=== PATIENT | male | born 1985 | race African-American/Black ===

== ENCOUNTER 2019-11-10 11:31 | Emergency (ER) | payer MEDICAID ==
[~2019-11-10] VITALS: Ht 182.9 cm; Wt 136.0 kg
[2019-11-10 11:37] VITALS: BP 150/100
[2019-11-10] MEDS ORDERED: CETI10TA74 PO (11:42)
[2019-11-10] MEDS ORDERED: FLUT9.9S NS (11:42)
--- NOTE | 2019-11-10 11:42 | PHYS DOC ---
Past History Past Medical History: No Pertinent History Adult General Chief Complaint Chief Complaint: CONGESTION HPI HPI Patient is a 33-year-old male who presents for congestion x2 days. Denies any known inciting event or trauma. Denies any provoking factors, admits taking hot he Toddy yesterday evening which helped his symptoms. Patient admits to generalized upper respiratory-like symptoms such as clear rhinorrhea, nasal congestion, and postnasal drip. Denies fever, known COVID-19 contact, headache, chest pain, shortness of breath, abdominal pain, urinary symptoms, syncope. He is not immunocompromised. He admits to smoking cigarettes and THC daily. Review of Systems Review of Systems Fourteen body systems of review of systems have been reviewed. See HPI for pertinent positives and negative responses, other fernandez all other systems are negative, non-pertinent or non-contributory Physical Exam Physical Exam Constitutional: Well developed, well nourished, no acute distress, non-toxic appearance. Ambulatory. Smells like marijuana HENT: Normocephalic, atraumatic, bilateral external ears normal, mild middle ear fluid of left ear, no abnormalities of bilateral tympanic membranes, mild postnasal drip present, oropharynx moist, no oral exudates, external nose normal, mildly engorged turbinates bilaterally with rhinorrhea present Eyes: PERRLA, EOMI, conjunctiva normal, no discharge. Neck: Normal range of motion, no tenderness, supple, no stridor. Cardiovascular: Heart rate regular, sinus rhythm, no murmurs rubs or gallops Lungs & Thorax: Bilateral breath sounds clear to auscultation Abdomen: Bowel sounds normal, soft, no tenderness, no masses, no pulsatile masses. Nonsurgical abdomen, no peritoneal signs Skin: Warm, dry, no erythema, no rash. Back: No tenderness, no CVA tenderness. Extremities: No tenderness, no cyanosis, no clubbing, ROM intact, no edema. Neurologic: Alert and oriented X 3, grossly normal motor & sensory function, no focal deficits noted. Psychologic: Affect normal, judgement normal, mood normal. EKG EKG [] Radiology/Procedures Radiology/Procedures [] Course & Med Decision Making Course & Med Decision Making Ambulatory patient seen on immediate ER arrival ABCs non-concerning Comprehensive history and physical exam obtained I discussed findings with patient, most likely viral syndrome. I encouraged continued supportive care for which patient was agreeable. I also offered patient COVID-19 screen; however, he declined as he did not want nasal swab performed I discussed this may be an acute presentation of more concerning pathology and he understood this well Strict return precautions were discussed with good understanding by patient, all questions and concerns addressed prior to ER departure in stable condition for continued supportive care with new prescriptions for Flonase and Zyrtec Dragon Disclaimer Dragon Disclaimer This electronic medical record was generated, in whole or in part, using a voice recognition dictation system. Departure Departure: Impression: Primary Impression: Viral syndrome Disposition: HOME/RESIDENCE PRIOR TO ADM Condition: STABLE Scripts Fluticasone Propionate (Flonase Allergy Relief) 9.9 Ml [place].susp 2 SPRAYS NS DAILY for Allergies, #1 BOTTLE Prov: AZUL COTE DO 11/10/19 Cetirizine Hcl (ZYRTEC) 10 Mg Tablet 1 TAB PO DAILY for Allergies, #30 TAB 2 Refills Prov: AZUL COTE DO 11/10/19 Justification of Admission: Justification of Admission: Justification of Admission Dx: N/A AZUL COTE DO Nov 10, 2019 11:42
== END 2019-11-10 11:48 | disposition home or self-care (01) ==
LOC: ER 11:31
DX: B34.9 Viral infection, unspecified (principal)
CPT/HCPCS: 99283

== ENCOUNTER 2019-11-17 22:34 | Emergency (ER) | payer MEDICAID ==
[~2019-11-17] VITALS: Ht 185.4 cm; Wt 147.6 kg
[~2019-11-17 22:34] MED LIST: CETI10TA74 PO; FLUT9.9S NS
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
[2019-11-17] MEDS ORDERED: IV RINGERS SOLUTION,LACTATED 1,000 ML IV SCH (23:00)
--- NOTE | 2019-11-17 23:11 | EKG ---
[address] [address] Test Date: 2019-11-17 Test Time: 22:56:32 Pat Name: ALETHEA CARL Department: Room: Gender: M Director Zone: : 1985 Requested By: LANA SHAIKH Order Number: [id number] Reading MD: Measurements Intervals [place] Rate: 83 P: 56 [place]: 150 QRS: 57 QRSD: 86 T: 16 QT: 360 QTc: 424 Interpretive Statements SINUS RHYTHM NORMAL ECG RI6.02 No previous ECG available for comparison
[2019-11-17 23:20] LABS: BASO # 0.1 x10^3/uL (0.0-0.2); BASO % 1 % (0-3); EOS # 0.3 x10^3/uL (0.0-0.7); EOS % 3 % (0-3); HEMATOCRIT 46.3 % (39.0-53.0); LYMPH # 2.9 x10^3/uL (1.0-4.8); LYMPH % 31 % (24-48); MEAN CORPUSCULAR HEMOGLOBIN 26 pg (25-35); MEAN CORPUSCULAR HGB CONC 32 g/dL (31-37); MEAN CORPUSCULAR VOLUME 81 fL (79-100); MONO # 0.8 x10^3/uL (0.0-1.1); MONO % 9 % (0-9); NEUT # 5.1 x10^3uL (1.8-7.7); NEUT % 56 % (31-73); PLATELET COUNT 274 x10^3/uL (140-400); RED BLOOD COUNT 5.71 x10^6/uL (4.30-5.70); RED CELL DISTRIBUTION WIDTH 14.5 % (11.5-14.5); WHITE BLOOD COUNT 9.1 x10^3/uL (4.0-11.0)
[2019-11-17 23:27] LABS: CALCIUM 9.4 mg/dL (8.5-10.1); CREATININE 1.3 mg/dL (0.7-1.3); GFR 76.5; POTASSIUM 4.5 mmol/L (3.5-5.1)
[2019-11-17 23:30] VITALS: BP 133/77
[2019-11-17 23:39] LABS: ALBUMIN 3.6 g/dL (3.4-5.0); DIRECT BILIRUBIN 0.1 mg/dL (0.0-0.2); MAGNESIUM 1.9 mg/dL (1.8-2.4); TOTAL BILIRUBIN 0.2 mg/dL (0.2-1.0)
[2019-11-18] MEDS ORDERED: ALBU2.5V8 IH (00:34)
[2019-11-18 00:35] LABS: BARBITURATES NEG (NEG); BENZODIAZEPINES NEG (NEG); CANNABINOIDS POS (NEG); COCAINE NEG (NEG); METHADONE NEG (NEG); OPIATES NEG (NEG); PHENCYCLIDINE NEG (NEG)
[2019-11-18 00:36] LABS: BACTERIA,URINE 0 /HPF (0-FEW); BILIRUBIN,URINE NEG (NEG); CLARITY,URINE CLEAR; COLOR,URINE YELLOW; GLUCOSE,URINE NEG (NEG); NITRITE,URINE NEG (NEG); RBC,URINE OCC /HPF (0-2); SQUAMOUS EPITHELIAL CELL,UR FEW /LPF; UROBILINOGEN,URINE 0.2 mg/dL (0.2 mg/dL)
[2019-11-18 00:38] LABS: AMPHETAMINE/METHAMPHETAMINE NEG (NEG)
--- NOTE | 2019-11-18 00:40 | RAD ---
CHEST PA LATERAL History: Reason: dyspnea / Spl. Instructions: / History: Comparison: None. Findings: The cardiomediastinal silhouette is normal. Pulmonary vasculature is normal. The lungs are clear. No pleural effusion or pneumothorax is seen. There is no acute bone abnormality. IMPRESSION: No acute cardiopulmonary process. Electronically signed by: Chapo Augustin MD (11/18/2019 12:37 AM) [facility]
== END 2019-11-18 01:07 | disposition home or self-care (01) ==
LOC: ER 22:34
DX: B34.9 Viral infection, unspecified (principal); J40 Bronchitis, not specified as acute or chronic; G47.30 Sleep apnea, unspecified; I10 Essential (primary) hypertension; R79.89 Other specified abnormal findings of blood chemistry; F17.210 Nicotine dependence, cigarettes, uncomplicated; F12.10 Cannabis abuse, uncomplicated; Z91.14 Patient's other noncompliance with medication regimen
CPT/HCPCS: 36415; 71046; 80048; 80076; 80307; 81001; 82550; 83690; 83735; 83880; 84443; 84484; 85025; 85379; 85610; 85730; 87070; 87880; 93005; 96360; 96361; 99285; G0480; J7120

== ENCOUNTER 2019-11-29 01:51 | Emergency (ER) | payer MEDICAID ==
[~2019-11-29] VITALS: Ht 185.4 cm; Wt 142.6 kg
[2019-11-29 01:51] VITALS: BP 163/105
[~2019-11-29 01:51] MED LIST changes: +ALBU2.5V8 IH
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
[2019-11-29] MEDS ORDERED: ASPIRIN CHEWABLE 81 MG TABLET. PO ONE (02:15)
[2019-11-29] MEDS ORDERED: IV RINGERS SOLUTION,LACTATED 1,000 ML IV SCH (02:15)
[2019-11-29] MEDS ORDERED: cloNIDine TTS-2 1 PATCH PATCH TD ONE ×2 (02:26→02:30)
[2019-11-29] MEDS ORDERED: cloNIDine HCL 0.1 MG TABLET ONE (02:26)
[2019-11-29] MEDS ORDERED: cloNIDine HCL 0.1 MG TABLET PO ONE (02:30)
[2019-11-29 03:23] LABS: AMPHETAMINE/METHAMPHETAMINE NEG (NEG); BARBITURATES NEG (NEG); BENZODIAZEPINES NEG (NEG); CANNABINOIDS POS (NEG); COCAINE POS (NEG); METHADONE NEG (NEG); OPIATES NEG (NEG); PHENCYCLIDINE NEG (NEG)
[2019-11-29 03:25] LABS: BACTERIA,URINE 0 /HPF (0-FEW); BILIRUBIN,URINE NEG (NEG); CLARITY,URINE CLEAR; COLOR,URINE YELLOW; GLUCOSE,URINE NEG (NEG); NITRITE,URINE NEG (NEG); SQUAMOUS EPITHELIAL CELL,UR FEW /LPF; UROBILINOGEN,URINE 0.2 mg/dL (0.2 mg/dL)
== END 2019-11-29 02:36 | disposition home or self-care (01) ==
LOC: ER 01:51
DX: R12 Heartburn (principal); K21.9 Gastro-esophageal reflux disease without esophagitis; I10 Essential (primary) hypertension; F41.9 Anxiety disorder, unspecified; F12.10 Cannabis abuse, uncomplicated; E78.00 Pure hypercholesterolemia, unspecified; G47.30 Sleep apnea, unspecified; F17.210 Nicotine dependence, cigarettes, uncomplicated; Z91.14 Patient's other noncompliance with medication regimen
CPT/HCPCS: 36415; 80307; 81001; 87086; 99283

== ENCOUNTER 2019-12-12 06:04 | Emergency (ER) | payer MEDICAID ==
[~2019-12-12] VITALS: Ht 185.4 cm; Wt 146.0 kg
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
[2019-12-12] MEDS ORDERED: METOCLOPRAMIDE 10 MG TABLET PO ONE (06:45)
[2019-12-12] MEDS ORDERED: diphenhydrAMINE HCL 25 MG CAPSULE PO ONE (06:45)
[2019-12-12] MEDS ORDERED: DEXAMETHASONE SOD PHOS 10 MG/ML VIAL. PO ONE (06:45)
[2019-12-12] MEDS ORDERED: IBUPROFEN 600 MG TABLET. PO ONE (06:45)
[2019-12-12] MEDS ORDERED: BENZ100C PO (06:48)
[2019-12-12 06:58] LABS: BARBITURATES NEG (NEG); BENZODIAZEPINES NEG (NEG); CANNABINOIDS POS (NEG); COCAINE NEG (NEG); METHADONE NEG (NEG); OPIATES NEG (NEG); PHENCYCLIDINE NEG (NEG)
[2019-12-12 07:00] LABS: AMPHETAMINE/METHAMPHETAMINE NEG (NEG)
[2019-12-12 07:05] VITALS: BP 142/99
== END 2019-12-12 07:05 | disposition home or self-care (01) ==
LOC: ER 06:04
DX: R51.9 Headache, unspecified (principal); R05 Cough; R11.0 Nausea; E78.00 Pure hypercholesterolemia, unspecified; I10 Essential (primary) hypertension; F41.9 Anxiety disorder, unspecified; F17.210 Nicotine dependence, cigarettes, uncomplicated; E78.5 Hyperlipidemia, unspecified; G47.33 Obstructive sleep apnea (adult) (pediatric); M19.90 Unspecified osteoarthritis, unspecified site; F12.10 Cannabis abuse, uncomplicated; E66.9 Obesity, unspecified; Z68.41 Body mass index [BMI] 40.0-44.9, adult
CPT/HCPCS: 36415; 80307; 99284; J1100; J8597; Q0163

== ENCOUNTER 2019-12-27 18:11 | Emergency (ER) | payer MEDICAID ==
[~2019-12-27] VITALS: Ht 185.4 cm; Wt 120.4 kg
[~2019-12-27 18:11] MED LIST changes: +BENZ100C PO
[2019-12-27 18:27] VITALS: BP 141/80
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
== END 2019-12-27 19:40 | disposition home or self-care (01) ==
LOC: ER 18:11
DX: S70.312A Abrasion, left thigh, initial encounter (principal); L53.8 Other specified erythematous conditions; E78.00 Pure hypercholesterolemia, unspecified; I10 Essential (primary) hypertension; F17.210 Nicotine dependence, cigarettes, uncomplicated; X58.XXXA Exposure to other specified factors, initial encounter; Y93.89 Activity, other specified; Y92.89 Other specified places as the place of occurrence of the external cause; Y99.8 Other external cause status
CPT/HCPCS: 99281

== ENCOUNTER 2019-12-29 15:34 | Emergency (ER) | payer MEDICAID ==
[~2019-12-29] VITALS: Ht 185.4 cm; Wt 143.0 kg
[2019-12-29] MEDS ORDERED: CLINDAMYCIN 600MG PREMIX 50 ML IV ONE (16:00)
[2019-12-29] MEDS ORDERED: BACITRACIN ZINC TOPICAL OINT PACKET. TP ONE (16:00)
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
[2019-12-29 16:29] LABS: BASO % 0 % (0-3); EOS # 0.1 x10^3/uL (0.0-0.7); EOS % 1 % (0-3); HEMATOCRIT 46.5 % (39.0-53.0); HEMOGLOBIN 14.6 g/dL (13.0-17.5); LYMPH # 2.1 x10^3/uL (1.0-4.8); LYMPH % 19 % (24-48); MEAN CORPUSCULAR HEMOGLOBIN 26 pg (25-35); MEAN CORPUSCULAR HGB CONC 31 g/dL (31-37); MEAN CORPUSCULAR VOLUME 81 fL (79-100); MONO # 1.1 x10^3/uL (0.0-1.1); MONO % 10 % (0-9); NEUT # 7.8 x10^3uL (1.8-7.7); NEUT % 70 % (31-73); PLATELET COUNT 269 x10^3/uL (140-400); RED BLOOD COUNT 5.74 x10^6/uL (4.30-5.70); RED CELL DISTRIBUTION WIDTH 14.9 % (11.5-14.5); WHITE BLOOD COUNT 11.2 x10^3/uL (4.0-11.0)
[2019-12-29 16:39] LABS: CALCIUM 9.2 mg/dL (8.5-10.1); CREATININE 1.2 mg/dL (0.7-1.3); GFR 83.4; POTASSIUM 4.2 mmol/L (3.5-5.1)
[2019-12-29 16:44] LABS: ALBUMIN 3.5 g/dL (3.4-5.0); ALBUMIN/GLOBULIN RATIO 0.9 (1.0-1.7); TOTAL BILIRUBIN 0.4 mg/dL (0.2-1.0); TOTAL PROTEIN 7.3 g/dL (6.4-8.2)
[2019-12-29] MEDS ORDERED: CLIN150C14 PO (17:01)
[2019-12-29] MEDS ORDERED: FAMO-63 PO (17:01)
[2019-12-29] MEDS ORDERED: DOXY100T PO (17:01)
[2019-12-29 17:11] VITALS: BP 148/70
== END 2019-12-29 17:10 | disposition home or self-care (01) ==
LOC: ER 15:34
DX: K92.2 Gastrointestinal hemorrhage, unspecified (principal); L03.116 Cellulitis of left lower limb; L02.416 Cutaneous abscess of left lower limb; I10 Essential (primary) hypertension; F12.90 Cannabis use, unspecified, uncomplicated; F17.210 Nicotine dependence, cigarettes, uncomplicated; Z90.89 Acquired absence of other organs; Z98.890 Other specified postprocedural states
CPT/HCPCS: 36415; 80053; 85025; 87040; 96365; 99284; J3490

== ENCOUNTER 2020-07-03 21:40 | Emergency (ER) | payer MEDICAID ==
[~2020-07-03] VITALS: Ht 185.4 cm; Wt 143.0 kg
[~2020-07-03 21:40] MED LIST changes: +CLIN150C15 PO; +DOXY100T PO; +FAMO-63 PO
[2020-07-03] MEDS ORDERED: SULF1TAB24 PO (22:36)
[2020-07-03 22:40] VITALS: BP 158/91
== END 2020-07-03 22:45 | disposition home or self-care (01) ==
LOC: ER 21:40
DX: L02.31 Cutaneous abscess of buttock (principal); I10 Essential (primary) hypertension; F17.210 Nicotine dependence, cigarettes, uncomplicated
CPT/HCPCS: 10060; 99283

== ENCOUNTER 2020-09-11 05:13 | Emergency (ER) | payer MEDICAID ==
[~2020-09-11] VITALS: Ht 185.4 cm; Wt 151.8 kg
[~2020-09-11 05:13] MED LIST changes: +SULF1TAB24 PO
[2020-09-11] MEDS ORDERED: CYCL-331 PO (05:40)
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
[2020-09-11 05:55] VITALS: BP 118/79
[2020-09-11] MEDS ORDERED: ACETAMINOPHEN 500 MG TABLET PO ONE (06:00)
[2020-09-11] MEDS ORDERED: IBUPROFEN 600 MG TABLET. PO ONE (06:00)
[2020-09-11] MEDS ORDERED: CYCLOBENZAPRINE 10 MG TABLET. PO ONE (06:30)
== END 2020-09-11 05:58 | disposition home or self-care (01) ==
LOC: ER 05:13
DX: M54.2 Cervicalgia (principal); M62.838 Other muscle spasm; I10 Essential (primary) hypertension; F17.210 Nicotine dependence, cigarettes, uncomplicated
CPT/HCPCS: 99284

== ENCOUNTER 2021-06-28 10:43 | Emergency (ER) | payer MEDICAID ==
[~2021-06-28] VITALS: Ht 185.4 cm; Wt 151.8 kg
[~2021-06-28 10:43] MED LIST changes: -CLIN150C15 PO; +CLIN150C16 PO; +CYCL10TA19 PO
[2021-06-28] MEDS ORDERED: IV NORMAL SALINE 1,000ML 1,000 ML IV ONE (11:15)
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
[2021-06-28] MEDS ORDERED: cloNIDine HCL 0.1 MG TABLET PO ONE (11:30)
--- NOTE | 2021-06-28 11:36 | RAD ---
EXAM: XR CHEST 1V 06/28/2021 11:16 AM CLINICAL INDICATION: Weakness COMPARISON: Chest radiograph 11/18/2019 TECHNIQUE: AP view of the chest FINDINGS: The cardiomediastinal silhouette is stable. Lungs are adequately expanded. There is no con solidation, pleural effusion, or pneumothorax. No acute osseous abnormality. IMPRESSION: No acute cardiopulmonary abnormality. Electronically signed by: Leilani Sanchez MD (06/28/2021 11:34 AM) [id number]
[2021-06-28 12:00] VITALS: BP 160/90
[2021-06-28 12:22] LABS: BASO % 1 % (0-3); EOS # 0.2 x10^3/uL (0.0-0.7); EOS % 4 % (0-3); HEMATOCRIT 45.1 % (39.0-53.0); HEMOGLOBIN 14.3 g/dL (13.0-17.5); LYMPH # 1.7 x10^3/uL (1.0-4.8); LYMPH % 25 % (24-48); MEAN CORPUSCULAR HEMOGLOBIN 26 pg (25-35); MEAN CORPUSCULAR HGB CONC 32 g/dL (31-37); MEAN CORPUSCULAR VOLUME 81 fL (79-100); MONO # 0.6 x10^3/uL (0.0-1.1); MONO % 8 % (0-9); NEUT # 4.2 x10^3uL (1.8-7.7); NEUT % 62 % (31-73); PLATELET COUNT 237 x10^3/uL (140-400); RED BLOOD COUNT 5.61 x10^6/uL (4.30-5.70); RED CELL DISTRIBUTION WIDTH 14.9 % (11.5-14.5); WHITE BLOOD COUNT 6.7 x10^3/uL (4.0-11.0)
[2021-06-28 12:31] LABS: CALCIUM 9.1 mg/dL (8.5-10.1); CREATININE 0.9 mg/dL (0.7-1.3); GFR 115.5; POTASSIUM 4.9 mmol/L (3.5-5.1)
[2021-06-28 12:38] LABS: ALBUMIN 3.4 g/dL (3.4-5.0); ALBUMIN/GLOBULIN RATIO 1.1 (1.0-1.7); TOTAL BILIRUBIN 0.3 mg/dL (0.2-1.0); TOTAL PROTEIN 6.6 g/dL (6.4-8.2)
[2021-06-28] MEDS ORDERED: PROM5SYR2 PO (12:52)
--- NOTE | 2021-06-28 18:35 | EKG ---
[address] [address] Test Date: 2021-06-28 Test Time: 11:12:16 Pat Name: ALETHEA CARL Department: Room: Gender: M Anesthesiology Medical Doctor: CALLI : 1985 Requested By: MONA RIBEIRO Order Number: [id number] Reading MD: Measurements Intervals [place] Rate: 79 P: 49 ID: [id number] QRS: 76 QRSD: 82 T: -11 QT: 358 QTc: 416 Interpretive Statements SINUS RHYTHM ST & T ABNORMALITY, CONSIDER INFERIOR ISCHEMIA OR LEFT VENTRICULAR STRAIN ABNORMAL ECG RI6.01 No previous ECG available for comparison
== END 2021-06-28 13:05 | disposition home or self-care (01) ==
LOC: ER 10:43
DX: R20.2 Paresthesia of skin (principal); R53.83 Other fatigue; R05.9 Cough, unspecified; E66.01 Morbid (severe) obesity due to excess calories; I10 Essential (primary) hypertension; F17.210 Nicotine dependence, cigarettes, uncomplicated; Z68.41 Body mass index [BMI] 40.0-44.9, adult
CPT/HCPCS: 36415; 71045; 80053; 84484; 85025; 93005; 96360; 99285; J7030

== ENCOUNTER 2021-07-01 04:52 | Emergency (ER) | payer MEDICAID ==
[~2021-07-01] VITALS: Ht 185.4 cm; Wt 155.0 kg
[~2021-07-01 04:52] MED LIST changes: +PROM5SYR2 PO
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
[2021-07-01] MEDS ORDERED: ALBUTEROL SULFATE 8GM INHALER. INH ONE (06:00)
[2021-07-01] MEDS ORDERED: predniSONE 10 MG TABLET. PO ONE (06:00)
[2021-07-01] MEDS ORDERED: IV RINGERS SOLUTION,LACTATED 1,000 ML IV SCH (06:00)
--- NOTE | 2021-07-01 06:29 | EKG ---
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
[2021-07-01 07:22] VITALS: BP 133/88
[2021-07-01 07:52] LABS: BARBITURATES NEG (NEG); BENZODIAZEPINES NEG (NEG); CANNABINOIDS POS (NEG); COCAINE NEG (NEG); METHADONE NEG (NEG); PHENCYCLIDINE NEG (NEG)
[2021-07-01 07:53] LABS: AMPHETAMINE/METHAMPHETAMINE NEG (NEG)
[2021-07-01 07:59] LABS: BACTERIA,URINE 0 /HPF (0-FEW); CLARITY,URINE CLEAR; COLOR,URINE YELLOW; GLUCOSE,URINE NEG (NEG); NITRITE,URINE NEG (NEG); RBC,URINE OCC /HPF (0-2); SQUAMOUS EPITHELIAL CELL,UR FEW /LPF; UROBILINOGEN,URINE 0.2 mg/dL (0.2 mg/dL); WBC,URINE OCC /HPF (0-4)
== END 2021-07-01 08:18 | disposition home or self-care (01) ==
LOC: ER 04:52
DX: J40 Bronchitis, not specified as acute or chronic (principal); B34.9 Viral infection, unspecified; I10 Essential (primary) hypertension; F17.210 Nicotine dependence, cigarettes, uncomplicated; F12.10 Cannabis abuse, uncomplicated
CPT/HCPCS: 36415; 80307; 81001; 93005; 94640; 96360; 99284; J7120; J7512; 94664

== ENCOUNTER 2021-07-22 08:06 | Emergency (ER) | payer MEDICAID ==
[~2021-07-22] VITALS: Ht 185.4 cm; Wt 155.3 kg
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
--- NOTE | 2021-07-22 09:28 | RAD ---
XR LUMBAR SPINE 2-3V History: Leg numbness, decreased strength. Comparison: None. Technique: 3 views of the lumbar spine. Findings: There are 5 non-rib bearing lumbar vertebral segments. There is no evidence of fracture. No destructive osseous lesions. Alignment is normal. No significant facet disease. Mild disc space narrowing L4-L5 and L5-S1. Question ankylosis of the superior aspect of the sacroiliac joints. Partially visualized left femoral head screw and mild degenerative changes of the femoral acetabular joint. Surgical clips in the right lower quadrant. IMPRESSION: 1. Mild disc space narrowing of the lower lumbar spine. If there is concern for radiculopathy, recom mend lumbar MRI. 2. Question ankylosis of the superior sacroiliac joints. Electronically signed by: Chicho Beckett MD (07/22/2021 9:25 AM) [id number]
[2021-07-22 09:40] VITALS: BP 160/91
[2021-07-22] MEDS ORDERED: PROM5SYR2 PO (09:40)
== END 2021-07-22 09:40 | disposition home or self-care (01) ==
LOC: ER 08:06
DX: R20.0 Anesthesia of skin (principal); G47.30 Sleep apnea, unspecified; I10 Essential (primary) hypertension; F17.210 Nicotine dependence, cigarettes, uncomplicated; F12.10 Cannabis abuse, uncomplicated; Z90.89 Acquired absence of other organs
CPT/HCPCS: 72100; 99283